=== PATIENT | female | born 1990 | race Hispanic/Latino ===

== ENCOUNTER 2018-11-22 19:45 | Inpatient (IN) | payer OTHER, SELFPAY ==
[2018-11-22] MEDS ORDERED: Lidocaine 1% (PF) 30 ML VIAL SC PRN (21:42)
[2018-11-22] MEDS ORDERED: Diphenoxylate HCl/Atropine Tablet PO PRN (21:42)
[2018-11-22] MEDS ORDERED: hydrALAZINE 20 MG/ML VIAL SLOW IVP PRN (21:42)
[2018-11-22] MEDS ORDERED: Ondansetron PF 4 MG/2 ML Vial IVP PRN (21:42)
[2018-11-22] MEDS ORDERED: Carboprost 250 MCG/ML AMP IM PRN (21:42)
[2018-11-22] MEDS ORDERED: Promethazine HCl 25 MG/ML VIAL IM PRN (21:42)
[2018-11-22] MEDS ORDERED: NS / Oxytocin 40 units/1000ml 1,000 ML IV PRN (21:42)
[2018-11-22] MEDS ORDERED: Ibuprofen 800 MG TAB PO PRN (21:42)
[2018-11-22] MEDS ORDERED: NS w/ Oxytocin 10 units 500 ML IV SCH (21:42)
[2018-11-22] MEDS ORDERED: Methylergonovine 0.2 MG/ML VIAL IM PRN (21:42)
[2018-11-22] MEDS ORDERED: Misoprostol 200 MCG TAB PR PRN (21:42)
[2018-11-22] MEDS ORDERED: HYDROcodone/Acetaminophen 5/325 mg Tablet PO PRN (21:42)
[2018-11-22 22:05] VITALS: BMI 30.1
[2018-11-22] MEDS: Lactated Ringer's 1,000 ML IV SCH (22:15)
[2018-11-22 22:28] LABS: Hemoglobin 12.3 g/dL (12.0-16.0); Mean Corpuscular HGB CONC 35.3 g/dL (32.0-36.0); Mean Corpuscular Hemoglobin 33.5 pg (27.0-31.0); Mean Platelet Volume 8.6 fL (7.4-10.4); Platelet Count 193 thou/uL (130-400); RBC Distribution Width 11.4 % (11.5-14.5); Red Blood Cell (RBC) Count 3.68 mill/uL (4.20-5.40); White Blood Cell (WBC) Count 9.4 thou/uL (4.8-10.8)
[2018-11-22] MEDS: Misoprostol 100 MCG TAB PO SCH (23:00)
[2018-11-22 23:10] LABS: Syphilis Antibody Nonreactive (Nonreactive); Syphilis Antibody Index 0.14 S/CO (<1.00 Non-Reactive)
[2018-11-23 01:03] LABS: Hep B Surf Ag NonReactive S/CO (NonReactive)
[2018-11-23 01:04] LABS: HBSAg Index 0.33 S/CO (0-0.99)
[2018-11-23] MEDS: Misoprostol 100 MCG TAB PO SCH (03:15)
[2018-11-23] MEDS: NS w/ Oxytocin 10 units 500 ML IV SCH ×2 (07:10→22:07)
[2018-11-23] MEDS: Butorphanol Tartrate 1 MG/ML VIAL SLOW IVP PRN ×2 (10:09→11:16)
[2018-11-23] MEDS ORDERED: Oxytocin 10 UNITS/ML VIAL ONE (12:33)
[2018-11-23] MEDS ORDERED: Ondansetron PF 4 MG/2 ML Vial FS PRN (12:51)
[2018-11-23] MEDS ORDERED: Preparation H Ointment 28 GM TUBE PR PRN (12:51)
[2018-11-23] MEDS ORDERED: Benzocaine-Menthol 82.5 ML CAN TOP PRN (12:51)
[2018-11-23] MEDS ORDERED: Milk Of Magnesia 30 ML UDCUP PO PRN (12:51)
[2018-11-23] MEDS ORDERED: Adacel (T-DAP) 0.5 ML SYRINGE IM ONE (12:51)
[2018-11-23] MEDS ORDERED: Lanolin Ointment 7 GM TUBE TOP PRN (12:51)
[2018-11-23] MEDS ORDERED: Bisacodyl 10 MG SUPP PR PRN (12:51)
[2018-11-23] MEDS ORDERED: Promethazine HCl 25 MG/ML VIAL IM PRN (12:51)
[2018-11-23] MEDS ORDERED: diphenhydrAMINE 25 MG CAP PO PRN (12:51)
[2018-11-23] MEDS ORDERED: HYDROcodone/Acetaminophen 5/325 mg Tablet PO PRN ×2 (12:51)
[2018-11-23] MEDS ORDERED: NS / Oxytocin 40 units/1000ml 1,000 ML IV SCH (13:00)
[2018-11-23] MEDS: Lactated Ringer's 1,000 ML IV SCH ×3 (17:22→22:07)
[2018-11-23] MEDS: Ibuprofen 800 MG TAB PO SCH ×2 (17:22→22:07)
[2018-11-23] MEDS: Ferrous Sulfate 325 MG TAB PO SCH (17:25)
[2018-11-23] MEDS: Docusate Calcium (SURFAK) 240 MG CAP PO SCH (22:07)
[2018-11-24 05:39] LABS: Mean Corpuscular HGB CONC 33.1 g/dL (32.0-36.0); Mean Corpuscular Hemoglobin 32.4 pg (27.0-31.0); Mean Corpuscular Volume 97.8 fL (78.0-98.0); Mean Platelet Volume 8.6 fL (7.4-10.4); Platelet Count 172 thou/uL (130-400); RBC Distribution Width 11.8 % (11.5-14.5); Red Blood Cell (RBC) Count 3.39 mill/uL (4.20-5.40); White Blood Cell (WBC) Count 10.4 thou/uL (4.8-10.8)
[2018-11-24] MEDS: Ibuprofen 800 MG TAB PO SCH ×2 (05:49→14:36)
[2018-11-24] MEDS: Ferrous Sulfate 325 MG TAB PO SCH (07:46)
[2018-11-24] MEDS: Lactated Ringer's 1,000 ML IV SCH (07:46)
[2018-11-24 08:01] VITALS: BP 103/55; TEMP 97.6
[2018-11-24] MEDS ORDERED: Prenatal Vitamin 1 TAB PO SCH (09:00)
[2018-11-24] MEDS: Docusate Calcium (SURFAK) 240 MG CAP PO SCH (14:36)
== END 2018-11-24 17:50 | disposition home or self-care (01) | DRG 807 ==
LOC: L&D 21:27 → 3SE 11-23 16:54
PROVIDERS: ADMIT Family Medicine; ATTEND Family Medicine
PROC: 10E0XZZ Delivery of Products of Conception, External Approach (ICD-10-PCS; principal; 2018-11-23)
PROC: 10907ZC Drainage of Amniotic Fluid, Therapeutic from Products of Conception, Via Natural or Artificial Opening (ICD-10-PCS; 2018-11-23)
PROC: 3E0P7VZ Introduction of Hormone into Female Reproductive, Via Natural or Artificial Opening (ICD-10-PCS; 2018-11-23)
DX: O80 Encounter for full-term uncomplicated delivery (principal); Z37.0 Single live birth; Z3A.39 39 weeks gestation of pregnancy
CPT/HCPCS: 36415; 85027; 86780; 86850; 86900; 86901; 87340; 90715; J0595; J2210; J2590